=== PATIENT | male | born 1970 | race Caucasian/White ===

== ENCOUNTER 2018-10-23 00:29 | Emergency (ER) | payer SELFPAY ==
[~2018-10-23] VITALS: Ht 172.7 cm; Wt 75.0 kg
[2018-10-23] MEDS ORDERED: KETOROLAC TROMETHAMINE 30 MG/ML VIAL IM ONE (00:45)
[2018-10-23] MEDS ORDERED: IBUPROFEN 800 MG TABLET PO ONE (01:00)
[2018-10-23 01:30] VITALS: BP 134/87
== END 2018-10-23 01:35 | disposition home or self-care (01) ==
LOC: EMS 00:32
DX: Z02.89 Encounter for other administrative examinations (principal); M54.5 Low back pain; F17.210 Nicotine dependence, cigarettes, uncomplicated